=== PATIENT | female | born 1950 | race Caucasian/White ===

== ENCOUNTER 2018-08-10 17:59 | Emergency (ER) | payer BC, OTHER ==
[2018-08-10 18:28] VITALS: BP 164/98; PULSE 85; TEMP 98.5; BMI 32.9
[2018-08-10] MEDS ORDERED: oxyCODONE HCL 80 MG SUSTAINED ACTING TABLET PO ONE (18:32)
[2018-08-10] MEDS ORDERED: KETOROLAC TROMETHAMINE 30 MG/1 ML VIAL IM ONE (18:32)
[2018-08-10] MEDS ORDERED: oxyCODONE HCL 10 MG SUSTAINED ACTING TABLET ONE (18:43)
[2018-08-10] MEDS ORDERED: KETOROLAC TROMETHAMINE 30 MG/1 ML VIAL ONE (18:45)
--- NOTE | 2018-08-10 18:47 | PDOC ---
History of Present Illness - General History Source: Patient Exam Limitations: No Limitations - History of Present Illness Initial Comments: 08/10/18 18:47 The patient is a 68 year old female with a significant past medical history of multiple spinal and neurologic problems who presents to the ED with right leg pain. The patient states she has been endorsing knee pain that is aggravated with walking and movement. The patient reports she has no feeling in her legs from her knees down. The patient notes she took 2 tablets of Tylenol for pain relief. The patient states she ran out of oxycodone, called her PCP, Dr. Castro for a new superintendent communications, however, no pharmacy has the generic oxycodone available at the moment. Her PCP, has referred her to a neurologist for a follow up appointment, however she denies scheduling an appointment. Allergies: None reported Past surgical history: cervical spinal surgery Social history: None reported PCP: Nikolai Valdez <Mac Ramirez - Last Filed: 08/10/18 18:47> <Ankush Briggs - Last Filed: 08/10/18 19:07> - General Chief Complaint: Pain Stated Complaint: BACK AND HIP AND RIGHT LEG PAIN Time Seen by Provider: 08/10/18 18:16 Past History <Mac Ramirez - Last Filed: 08/10/18 18:47> - Past Medical History Anemia: No Asthma: No Cancer: No Cardiac Disorders: No CVA: No COPD: No CHF: No Dementia: No Diabetes: No GI Disorders: Yes (GERD HIATAL HERNIA) Disorders: Yes (UTI) HTN: Yes Hypercholesterolemia: No Liver Disease: No Seizures: No Thyroid Disease: No Other medical history: CHRONIC PAIN SPINAL STENOSIS - Surgical History Abdominal Surgery: Yes (OVARIAN CYST) Appendectomy: No Cardiac Surgery: No Cholecystectomy: Yes Lung Surgery: No Neurologic Surgery: No Orthopedic Surgery: Yes (CERVICAL SPINE SURGERY) - Suicide/Smoking/Psychosocial Hx Smoking Status: Yes Smoking History: Former smoker Have you smoked in the past 12 months: No Number of Cigarettes Smoked Daily: 5 If you are a former smoker, when did you quit?: 4 YEARS AGO Information on smoking cessation initiated: No 'Breaking Loose' booklet given: 12/05/15 Hx Alcohol Use: No Drug/Substance Use Hx: No Substance Use Type: None Hx Substance Use Treatment: No <Ankush Briggs - Last Filed: 08/10/18 19:07> - Past Medical History Allergies/Adverse Reactions: Allergies Allergy/AdvReac Type Severity Reaction Status Date / Time No Known Allergies Allergy Verified 08/10/18 18:01 Home Medications: Ambulatory Orders Metformin HCl [Metformin HCl ER] 500 mg PO DAILY 08/10/18 Oxycodone HCl [Oxycontin] 80 mg PO TID 08/10/18 Pregabalin [Lyrica -] 75 mg PO TID 08/10/18 Review of Systems - Review of Systems Able to Perform ROS?: Yes Comments:: 08/10/18 18:49 A complete review of 10 out of 10 review of systems is taken and is negative apart from what is previously mentioned below and in the HPI. All Other Systems: Reviewed and Negative <Mac Ramirez - Last Filed: 08/10/18 18:47> *Physical Exam - Vital Signs Last Vital Signs Temp Pulse Resp BP Pulse Ox 98.5 F 85 16 164/98 10 L 08/10/18 18:00 08/10/18 18:00 08/10/18 18:00 08/10/18 18:00 08/10/18 18:00 - Physical Exam Comments: 08/10/18 18:49 Vitals: Triage Vital signs reviewed General Appearance: no acute distress, well nourished well developed, Head: Atraumatic, normocephalic Extremities: (+) pain with range of motion to right knee, arthritic changes. No deformities, no cyanosis, clubbing, or edema. Neurovascular intact. Skin: Warm and dry, no rashes or lesions, no petechiae Neuro: AOX3; Cranial Nerves 2-12 grossly c intact, Strength intact to all extremities, Sensation intact to all extremities, gait normal <Mac Ramirez - Last Filed: 08/10/18 18:47> - Vital Signs Last Vital Signs Temp Pulse Resp BP Pulse Ox 98.5 F 85 16 164/98 10 L 08/10/18 18:00 08/10/18 18:00 08/10/18 18:00 08/10/18 18:00 08/10/18 18:00 <Ankush Briggs - Last Filed: 08/10/18 19:07> ED Treatment Course - RADIOLOGY Radiology Studies Ordered: Category Date Time Status KNEE 3 POS-RIGHT [RAD] Stat Radiology 08/10/18 18:30 Ordered <Ankush Briggs - Last Filed: 08/10/18 19:07> Medical Decision Making - Medical Decision Making 08/10/18 18:49 The patient is a 68 year old female with a significant past medical history of multiple spinal and neurologic problems who presents to the ED with right leg pain. <Mac Ramirez - Last Filed: 08/10/18 18:47> - Medical Decision Making 08/10/18 19:04 Chronic back hip and leg pain patient with multiple spinal surgeries is chronically on oxycodone pharmacy did not have her generic and was unable to fill her prescription I discussed with patient I am unable to provide refills although this would not help her current situation is pharmacy does not have her corrective prescription I confirmed that her last prescription was for 20 days ago using I stop We will treat with one pill here in the emergency department she will call her primary care provider's office to try to arrange a substitute medication while deformity remedies a situation X-ray with no acute fracture dislocation noted Findings, the need for follow-up and strict return instructions discussed patient. <Ankush Briggs - Last Filed: 08/10/18 19:07> *DC/Admit/Observation/Transfer - Attestations Scribe Attestion: 08/10/18 18:51 Documentation prepared by Mac Ramirez, acting as medical librarian for Ankush Briggs MD, MD <Mac Ramirez - Last Filed: 08/10/18 18:47> - Discharge Dispostion Decision to Admit order: No <Anuksh Briggs - Last Filed: 08/10/18 19:07> Diagnosis at time of Disposition: Chronic pain Qualifiers: Chronic pain type: chronic pain syndrome Qualified Code(s): G89.4 - Chronic pain syndrome - Discharge Dispostion Disposition: HOME Condition at time of disposition: Stable - Referrals Referrals: Polly Bolunt MD [Staff Physician] - - Patient Instructions Printed Discharge Instructions: DI for Knee Pain Additional Instructions: Follow-up with your doctor or with the pain management doctor tomorrow to discuss alternatives to the medication the pharmacy was unable to provide Call your local pharmacy to see if they can find alternative pharmacies for you Follow-up with your doctor this week.
== END 2018-08-10 19:20 | disposition home or self-care (01) ==
LOC: SUPCPDRO 17:59 → FER 17:59
PROC: 3E0233Z Introduction of Anti-inflammatory into Muscle, Percutaneous Approach (ICD-10-PCS; principal; 2018-08-10)
DX: G89.4 Chronic pain syndrome (principal)
CPT/HCPCS: 73562-TC-RT-FY; 99282-25

== ENCOUNTER 2020-01-03 06:14 | Inpatient (IN) | payer BC, OTHER ==
[2019-12-28 11:09] VITALS: BMI 32.9
[2020-01-03] MEDS ORDERED: TRANEXAMIC ACID 1000 MG/10 ML VIAL IVPUSH ONE (06:54)
[2020-01-03] MEDS ORDERED: CELECOXIB 200 MG CAPSULE PO ONE (06:54)
[2020-01-03] MEDS ORDERED: CEFAZOLIN 2 GM/D5W 2 GM/50 ML ML IVPB ONE (06:54)
[2020-01-03] MEDS ORDERED: CELECOXIB 200 MG CAPSULE ONE (07:03)
[2020-01-03] MEDS ORDERED: MIDAZOLAM HCL 2 MG/2 ML SINGLE DOSE VIAL ONE ×3 (07:07→08:53)
[2020-01-03] MEDS ORDERED: EPINEPHrine/PF 1 MG/1 ML (1:1,000) AMPULE ONE (07:07)
[2020-01-03] MEDS ORDERED: BUPIVACAINE HCL/PF 0.5% (5 MG/ML) 30 ML VIAL IJ ONE (07:07)
[2020-01-03] MEDS ORDERED: PROPOFOL 20 ML ONE (07:15)
[2020-01-03] MEDS ORDERED: TRANEXAMIC ACID 1000 MG/10 ML VIAL ONE (07:15)
[2020-01-03] MEDS ORDERED: ceFAZolin SODIUM 1 GM VIAL ONE ×2 (07:15)
[2020-01-03] MEDS ORDERED: VANCOMYCIN 1,000 MG VIAL (RESTRICTED TO ID ONLY) ONE (07:15)
[2020-01-03] MEDS ORDERED: DEXAMETHASONE SOD PHOSPHATE 4 MG/1 ML VIAL ONE (07:16)
[2020-01-03] MEDS ORDERED: ONDANSETRON 4 MG/2 ML VIAL ONE (07:16)
[2020-01-03] MEDS ORDERED: ALBUTEROL SO4 HFA INHALER IH PRN (07:54)
--- NOTE | 2020-01-03 07:54 | HP ---
Satellite H - Chief Complaint Chief Complaint: right hip pain - Past Medical History Allergies/Adverse Reactions: Allergies Allergy/AdvReac Type Severity Reaction Status Date / Time No Known Allergies Allergy Verified 12/28/19 10:56 - Current Medications Current Medications: Home Medications Medication Instructions Recorded Oxycodone HCl [Oxycontin] 80 mg PO TID PRN 08/10/18 Pregabalin [Lyrica -] 75 mg PO TID 08/10/18 metFORMIN HCL [Metformin HCl ER] 500 mg PO DAILY 08/10/18 Metoprolol Succinate [Toprol Xl] 100 mg PO HS 12/28/19 Albuterol Sulfate Inhaler - 2 inh PO Q4H PRN 01/03/20 [Ventolin Hfa Inhaler -] Satellite Physical Exam - Physical Examination Vital Signs: Vital Signs Period Temp Pulse Resp BP Sys/Calderon Pulse Ox Last 24 Hr 98.4 F 62 18 134/65 95 General Appearance: Well Nourished, Well Developed, Alert & Oriented x3 ENT: Clear Lung: Normal air movement Extremities: Other (right hip- + ttp, decr rom, nvi, xrays show grade 4 hip djd) Neurological: Intact, Alert, Oriented Satellite Impression/Plan - Impression/Plan Impression: right hip djd Operative Procedure: right cassidy thr Date to be Performed: 01/03/20
[2020-01-03] MEDS ORDERED: ONDANSETRON 4 MG/2 ML VIAL IVPUSH PRN (07:55)
[2020-01-03] MEDS ORDERED: MAG HYDROX/AL HYDROX/SIMETH 30 ML UNIT-DOSE CUP PO PRN (07:55)
[2020-01-03] MEDS ORDERED: MAGNESIUM HYDROX 2400MG/30ML ORAL SUSPENSION 30 ML CUP PO PRN (07:55)
[2020-01-03] MEDS ORDERED: LACTATED RINGERS SOLUTION 1,000 ML IV SCH (08:00)
[2020-01-03] MEDS ORDERED: BUPIVACAINE HCL/PF 0.5% (5MG/ML) 10 ML VIAL ONE (08:01)
[2020-01-03] MEDS ORDERED: SUCCINYLCHOLINE CHLORIDE 200 MG/10 ML SYRINGE ONE (08:38)
[2020-01-03] MEDS ORDERED: VANCOMYCIN 1,000 MG VIAL (RESTRICTED TO ID ONLY) IVPB ONE (09:17)
[2020-01-03] MEDS ORDERED: traMADol HCL 50 MG TABLET PO PRN (09:25)
[2020-01-03] MEDS ORDERED: oxyCODONE HCL 5 MG TABLET PO PRN (09:25)
--- NOTE | 2020-01-03 09:29 | OP ---
Operative Note - Note: Operative Date: 01/03/20 (noel) Pre-Operative Diagnosis: right hip djd Operation: right cassidy thr Post-Operative Diagnosis: Same as Pre-op Surgeon: Simba Magallon Recovery Operator Helper: Nikolai Reyes) Anesthesiologist/CINDER CRUSHER OPERATOR: Roc Mendoza Anesthesia: Spinal, Local Specimens Removed: femoral head Estimated Blood Loss (mls): 100
[2020-01-03] MEDS ORDERED: ACETAMINOPHEN 325 MG TABLET (FP) PO SCH (09:30)
[2020-01-03] MEDS ORDERED: ACETAMINOPHEN 325 MG TABLET (FP) ONE (11:25)
[2020-01-03] MEDS: PREGABALIN 25 MG CAPSULE PO SCH ×2 (13:23→22:13)
[2020-01-03] MEDS: MULTIVITAMINS (DAILY MVI) TABLET (FP) PO SCH (13:30)
[2020-01-03] MEDS: PANTOPRAZOLE 40 MG TABLET PO SCH (13:30)
[2020-01-03] MEDS: CEFAZOLIN 2 GM/D5W 2 GM/50 ML ML IVPB SCH ×2 (15:51→23:52)
[2020-01-03] MEDS: ACETAMINOPHEN 325 MG TABLET (FP) PO SCH ×3 (15:52→23:52)
[2020-01-03] MEDS: oxyCODONE HCL 5 MG TABLET PO PRN ×2 (17:38→22:13)
--- NOTE | 2020-01-03 20:11 | SPEC ---
DATE OF OPERATION: 01/03/2020 PREOPERATIVE DIAGNOSIS: Degenerative joint disease right hip. POSTOPERATIVE DIAGNOSIS: Degenerative joint disease right hip. PROCEDURE PERFORMED: Right total hip replacement with robotic-assisted navigation (MAKOplasty). SURGICAL ATTENDING: Simba Magallon M.D. PROGRAM ADMIN: Nati Rebolledo SECOND POWER BUILDER DEVELOPER: Manish Ribeiro M.D. ANESTHESIA: Regional and spinal. CLOSURE: A Brenda with a 52 Press-Fit Trident 2 acetabular shell, a number 7 Accolade 2 Press-Fit femoral stem, and a 36 plus 2.5 ceramic femoral head. Number 1 Vicryl for fascia, 0 and 2-0 subcutaneous, 3-0 V-Loc for skin, 4-0 undyed Vicryl for pin sites. . COMPLICATIONS: None. CONDITION: To the recovery room in stable condition. DESCRIPTION OF PROCEDURE: The patient was taken to the operating room on January 03, 2020. General and regional anesthesia was administered by the anesthesiologist. IV Kefzol and TXA were administered prophylactically prior to the case. The patient was placed in the lateral decubitus position will all prominences well-padded. The right hip area was prepped and draped in the usual sterile fashion. Using 3 small stab incisions over the iliac crest, 3 threaded pins were drilled in power fashion through the 2 tables of the crest. These pins were fastened and the navigation array for the Chidi navigation system. Next, a 12 to 15-cm curved longitudinal incision over the posterolateral aspect of the greater trochanter was incised. Hemostasis was achieved with Bovie cautery. Sharp dissection was carried down to level of the fascia. The fascia was opened the entire length of the incision, spreading the fibers of the gluteus feliciano in the direction of origin. A Charnley retractor was placed in this layer. Care was taken not to impale the sciatic nerve. The short external rotators were detached off the insertion of the greater trochanter and peeled off the capsule. A posterior capsulotomy was then performed. A check point was malleted into the greater trochanter and a point on the inferior pole of the patella was obtained as well. These 2 points were used to assess the preoperative offset and limb lengths of the hip. The hip was then dislocated. The femoral neck was then osteotomized down to the appropriate level as directed by the navigation device. Anterior and posterior retractors were placed, exposing the acetabulum. A circumferential labral excision was performed. A check point was malleted into the acetabulum as well. Multiple sites inside the acetabulum and around the rim were utilized to register the acetabulum with the navigation device. An excellent registration of less than 0.5 mm was obtained. The hip was then reamed with the appropriate reamer down to the appropriate depth, with the appropriate orientation and version as assessed on our preoperative plan for this patient. The reamer was removed and the acetabulum was inspected to have good bleeding surfaces throughout. The real acetabular cup was then malleted down into place, with the holes in the appropriate position, until an excellent fixation was obtained. No screws were necessary. The navigation device ensured appropriate orientation and version, with the depth as predetermined. The appropriate liner was then clipped into place. Attention was directed to the femur. The proximal femur was prepared by use a box chisel, a canal finder and serial broaches until the broach achieved excellent rigidity in the proximal femur with the appropriate version being applied. A calcar planer was used to smooth off the calcar flush with the trial components. A trial reduction with the appropriate head was done, and the hip was reduced. The hip was taken through a range of motion from full extension with external rotation to marked flexion, and was stable at 90 degrees of flexion. It was stable to marked abduction and internal rotation, with a positive hang test and negative telescoping. Limb lengths were ascertained visually as well as with the navigation device to be within the targeted range for this patient. The trial component was removed. The real component was then malleted into place. The head was cold welded to the trunnion, and the hip was reduced. Range of motion, stability and limb lengths were as described in the trial component. Then the hip was pulse antibiotic irrigated. Vancomycin powder was placed in the hip joint. The capsule was closed. The fascia was then closed as well using number 1 Vicryl interrupted suture, 0 and 2-0 subcutaneous, and 3-0 V-Loc for the skin. 4-0 undyed Vicryl was used to close the pin sites after the pins were removed. All check points were also removed. Sterile Aquacel dressing was applied. The patient was awakened from anesthesia and transferred into the supine position. Bilateral SCDs and an abduction pillow were placed. X-rays revealed excellent position of the components. The patient was transferred to the recovery room in stable condition, with no complications. Estimated blood loss was less than 100 mL. MANISH RIBEIRO M.D. [id number]
[2020-01-03] MEDS: SENNOSIDES/DOCUSATE COMBO (SENNA PLUS) TABLET (UD) PO SCH (22:13)
[2020-01-04] MEDS: ACETAMINOPHEN 325 MG TABLET (FP) PO SCH ×3 (05:26→19:20)
[2020-01-04] MEDS: oxyCODONE HCL 5 MG TABLET PO PRN ×6 (05:27→22:39)
[2020-01-04] MEDS: PREGABALIN 25 MG CAPSULE PO SCH (05:27)
--- NOTE | 2020-01-04 08:08 | PN ---
Progress Note (short form) - Note Progress Note: Ortho Pt seen and examined s/p right cassidy thr pod #1 Selected Entries 01/04/20 06:00 Temperature 98.7 F Pulse Rate 70 Respiratory 18 Rate Blood Pressure 101/53 L dressing c/d/i ,calf soft, nt ,nvi a/p PT hip precautions dvt ppx pain control d/c home tomorrow if stable
[2020-01-04 08:42] LABS: HEMATOCRIT 33.3 % (32.4-45.2); HEMOGLOBIN 11.1 GM/dl (10.7-15.3); MCH 34.5 pg (25.7-33.7); MCHC 33.3 g/dl (32.0-36.0); MEAN CELL VOLUME 103.3 fl (80-96); MEAN PLT VOLUME 7.6 fl (7.5-11.1); PLATELET COUNT 138 K/MM3 (134-434); RBC 3.22 M/mm3 (3.60-5.2); RDW 16.3 % (11.6-15.6); WHITE BLOOD COUNT 8.3 K/mm3 (4.0-10.8)
[2020-01-04] MEDS: MULTIVITAMINS (DAILY MVI) TABLET (FP) PO SCH (10:38)
[2020-01-04] MEDS: SENNOSIDES/DOCUSATE COMBO (SENNA PLUS) TABLET (UD) PO SCH ×3 (10:38→21:54)
[2020-01-04] MEDS: PANTOPRAZOLE 40 MG TABLET PO SCH (10:38)
[2020-01-04] MEDS: ASPIRIN 325 MG TABLET PO SCH (10:38)
--- NOTE | 2020-01-04 14:53 | PN ---
Progress Note (short form) - Note Progress Note: ANESTHESIA POSTOP 69 YO FEMALE POD#1 S/P KRISTOFER Sitting in chair. Tolerating PO. Requires pain medication to stay comfortable VSS, Afebrile Continue current care, encouraged active participation in PT and use of IS. No anesthetic complications.
[2020-01-05] MEDS: ACETAMINOPHEN 325 MG TABLET (FP) PO SCH ×3 (01:49→11:01)
[2020-01-05] MEDS: oxyCODONE HCL 5 MG TABLET PO PRN ×2 (01:49→06:52)
[2020-01-05 06:30] VITALS: BP 143/61; PULSE 102; TEMP 99
--- NOTE | 2020-01-05 07:59 | PN ---
Progress Note (short form) - Note Progress Note: Ortho Pt seen and examined s/p right cassidy thr pod #2 Selected Entries 01/05/20 06:00 Temperature 99.0 F Pulse Rate 102 H Respiratory 18 Rate Blood Pressure 143/61 Laboratory Tests 01/04/20 06:54 WBC 8.3 Hgb 11.1 Hct 33.3 D Plt Count 138 dressing c/d/i ,calf soft, nt ,nvi a/p PT hip precautions dvt ppx pain control d/c home today f/u in 1 week
--- NOTE | 2020-01-05 08:00 | DS ---
Physical Examination Vital Signs: Vital Signs Temperature 99.0 F 01/05/20 06:00 Pulse Rate 102 H 01/05/20 06:00 Respiratory Rate 18 01/05/20 06:00 Blood Pressure 143/61 01/05/20 06:00 O2 Sat by Pulse Oximetry (%) 91 L 01/05/20 06:00 Labs: CBC, BMP 01/04/20 06:54 Discharge Summary Problems reviewed: Yes Reason For Visit: OSTEOARTHRITIS Procedures: Principal: right thr Hospital Course: admitted for elective right cassidy thr, post-op per protocol, stable for d/c Condition: Good - Instructions Diet, Activity, Other Instructions: Post-op Instructions-Total Hip Replacement Call the office for a follow-up appointment in 1 week - [phone] Aspirin 325mg daily for 6 weeks. Pain medication was sent into your pharmacy. Apply Graduated Compression Stockings (TEDs) to both lower extremities- remove daily for hygiene ONLY Apply Sequential Compression Device (SCDs) to both Lower extremities remove for PT and hygiene ONLY Apply cold packs to affected area for 15 minutes every 2 hours. Physical Therapist will come to your home for the first 5 days. You will be set up with outpatient PT at your first post-operative visit. Patient may ambulate as tolerated-encourage self care (at least every 2-3 hours while awake) with walker or cane Maintain Aquacel (waterproof) dressing to operative wound (will be removed by surgeon at first office visit) Shower with Aquacel dressing in place-if Aquacel integrity compromised, remove and apply dry sterile dressing and notify Orthopedist. DO NOT SHOWER unless Orthopedists approves without Aquacel dressing CONTACT THE OFFICE FOR ANY CHANGE IN YOUR CONDITION (for example-fever greater than 102 degrees, excessive bleeding from operative site, purulent drainage, severe swelling or pain) GO TO THE EMERGENCY ROOM IF THERE IS A MEDICAL EMERGENCY Hip Precautions: * Keep a rolled towel under affected heel while in bed or chair (to keep knee in extension) * Dependent upon approach: * Posterior - do not cross legs; do not sit on low chairs or toil ets. * If you have any questions, please do not hesitate to call the office - [phone]. Referrals: Aneesh Ribeiro MD [Staff Physician] - Disposition: VNS/HOME HEALTH CARE - Home Medications Comprehensive Discharge Medication List: Ambulatory Orders Oxycodone HCl [Oxycontin] 80 mg PO TID PRN 08/10/18 Pregabalin [Lyrica -] 75 mg PO TID 08/10/18 metFORMIN HCL [Metformin HCl ER] 500 mg PO DAILY 08/10/18 Metoprolol Succinate [Toprol Xl] 100 mg PO HS 12/28/19 Albuterol Sulfate Inhaler - [Ventolin HFA Inhaler -] 2 inh PO Q4H PRN 01/03/20 Aspirin [ASA -] 325 mg PO DAILY@0800 tablet 01/04/20 Oxycodone HCl/Acetaminophen [Percocet 5-325 mg Tablet -] 1 - 2 tab PO Q6H #50 tab MDD 8 01/04/20
[2020-01-05] MEDS: ASPIRIN 325 MG TABLET PO SCH (08:15)
[2020-01-05 08:27] LABS: HEMATOCRIT 34.2 % (32.4-45.2); HEMOGLOBIN 11.3 GM/dl (10.7-15.3); MCH 34.1 pg (25.7-33.7); MCHC 32.9 g/dl (32.0-36.0); MEAN CELL VOLUME 103.6 fl (80-96); MEAN PLT VOLUME 7.9 fl (7.5-11.1); PLATELET COUNT 138 K/MM3 (134-434); RBC 3.31 M/mm3 (3.60-5.2); RDW 16.5 % (11.6-15.6); WHITE BLOOD COUNT 8.1 K/mm3 (4.0-10.8)
[2020-01-05] MEDS: PANTOPRAZOLE 40 MG TABLET PO SCH (09:28)
[2020-01-05] MEDS: MULTIVITAMINS (DAILY MVI) TABLET (FP) PO SCH (09:28)
[2020-01-05] MEDS: SENNOSIDES/DOCUSATE COMBO (SENNA PLUS) TABLET (UD) PO SCH (09:28)
--- NOTE | 2020-01-05 15:17 | PATH ---
Surgical Pathology Report Patient Name: AKIN GALVEZ Med. Rec. #: [id number] /Age/Gender: 1950 (Age: 69) / F Account: [id number] Location: [facility] MED-SURG Taken: 01/03/2020 Received: 01/03/2020 Reported: 01/05/2020 Physicians: Simba Magallon M.D. Specimen(s) Received RIGHT FEMORAL HEAD Clinical History Osteoarthritis, right hip Final Diagnosis FEMORAL HEAD, RIGHT, TOTAL HIP REPLACEMENT: DEGENERATIVE JOINT DISEASE. Electronically Signed Daphney Wing M.D. Gross Description Received in formalin, labeled "right femoral head," is a 5.5 x 4.7 x 4.2 cm. femoral head. The margin of resection is smooth. The articular surface appears granular and shows areas of eburnation. The underlying trabecular bone is yellow and hard. A sales representative groceries section is submitted in one cassette, following decalcification. AE/01/04/2020 ebram/01/04/2020
== END 2020-01-05 12:20 | disposition home health service (06) | DRG 470 ==
LOC: FM/S 06:14
PROVIDERS: ADMIT Orthopaedic Surgery; ATTEND Orthopaedic Surgery
PROC: 8E0W0CZ Robotic Assisted Procedure of Trunk Region, Open Approach (ICD-10-PCS; 2020-01-03)
PROC: 0SRB0JZ Replacement of Left Hip Joint with Synthetic Substitute, Open Approach (ICD-10-PCS; principal; 2020-01-03 08:32)
DX: M16.11 Unilateral primary osteoarthritis, right hip (principal); J44.9 Chronic obstructive pulmonary disease, unspecified; K21.9 Gastro-esophageal reflux disease without esophagitis; E11.9 Type 2 diabetes mellitus without complications; E66.9 Obesity, unspecified; Z68.32 Body mass index [BMI] 32.0-32.9, adult
CPT/HCPCS: 36415; 73502-TC-RT-FY; 82962; 85027; 88305-TC; 88311-TC; 94760; 97116-GP; 97162-GP

== ENCOUNTER 2020-02-13 14:08 | Emergency (ER) | payer BC, OTHER ==
[2020-02-13 14:18] VITALS: BP 167/96; PULSE 95; TEMP 98.5; BMI 32.9
[2020-02-13] MEDS ORDERED: oxyCODONE HCL 80 MG SUSTAINED ACTING TABLET PO ONE (14:25)
--- NOTE | 2020-02-13 14:25 | PDOC ---
History of Present Illness - General Chief Complaint: Pain, Acute Stated Complaint: pain Time Seen by Provider: 02/13/20 14:14 History Source: Patient Exam Limitations: No Limitations - History of Present Illness Initial Comments: 02/13/20 14:20 69 yo F h/o chronic pain, recent hip surgery , here because ran out of pain medication. pt has been receiving prescriptions for oxycontin 80 ER , last prescription given in 01/24, but unable to see her dr Castro today. no f/c does have bilat leg swelling which is chronic. no f/c no sp no cob. no h/o pe or dvt. no mod factors. Past History - Medical History Allergies/Adverse Reactions: Allergies Allergy/AdvReac Type Severity Reaction Status Date / Time No Known Allergies Allergy Verified 02/13/20 14:11 Home Medications: Ambulatory Orders Oxycodone HCl [Oxycontin] 80 mg PO TID PRN 08/10/18 Pregabalin [Lyrica -] 75 mg PO TID 08/10/18 metFORMIN HCL [Metformin HCl ER] 500 mg PO DAILY 08/10/18 Metoprolol Succinate [Toprol Xl] 100 mg PO HS 12/28/19 Albuterol Sulfate Inhaler - [Ventolin HFA Inhaler -] 2 inh PO Q4H PRN 01/03/20 Aspirin [ASA -] 325 mg PO DAILY@0800 tablet 01/04/20 Anemia: No Asthma: No Cancer: No Cardiac Disorders: No CVA: No COPD: Yes CHF: No Dementia: No Diabetes: Yes GI Disorders: Yes (GERD;HIATAL HERNIA) Disorders: Yes (FREQUENT UTI'S) HTN: Yes Hypercholesterolemia: No Liver Disease: No Seizures: No Thyroid Disease: No - Surgical History Abdominal Surgery: Yes Appendectomy: No Cardiac Surgery: No Cholecystectomy: Yes (1994) Lung Surgery: No Neurologic Surgery: No Orthopedic Surgery: Yes (CERVICAL SPINE SURGERY-CERVICAL FUSION & STABILIZING BAR;LUMBAR CAGES) - Immunization History Immunization Up to Date: Yes - Psycho-Social/Smoking History Smoking Status: Yes Smoking History: Current some day smoker Have you smoked in the past 12 months: Yes Number of Cigarettes Smoked Daily: 1 If you are a former smoker, when did you quit?: 4 YEARS AGO Information on smoking cessation initiated: No 'Breaking Loose' booklet given: 12/05/15 - Substance Abuse Hx (Audit-C & DAST Scrn) How often the patient has a drink containing alcohol: Never Score: In Men: 4 or > Positive; In Women: 3 or > Positive: 0 Screen Result (Pos requires Nsg. Audit-10AR): Negative In the last yr the pt used illegal drug/Rx for NonMed reason: No Score: Yes response is considered Positive: 0 Screen Result (Positive result requires Nsg. DAST-10): Negative Review of Systems - Review of Systems Constitutional: No: Chills, Diaphoresis HEENTM: No: Eye Pain, Blurred Vision, Tearing Respiratory: No: Cough, Orthopnea, Shortness of Breath Cardiac (ROS): No: Chest Pain, Edema : No: Burning, Dysuria, Discharge Musculoskeletal: Yes: Joint Pain. No: Back Pain, Gout Integumentary: No: Bruising, Change in Color All Other Systems: Reviewed and Negative *Physical Exam - Vital Signs Last Vital Signs Temp Pulse Resp BP Pulse Ox 98.5 F 95 H 18 167/96 100 02/13/20 14:10 02/13/20 14:10 02/13/20 14:10 02/13/20 14:10 02/13/20 14:10 - Physical Exam 02/13/20 14:54 awake alert lungs clear bilat heart rrr no mrg abd soft nt nd ext wwp. bilat pitting edema. right greater than left 3+. nuero alert oriented x 3. Medical Decision Making - Medical Decision Making 02/13/20 14:23 69 yo F h/o chronic pain,, hip pain s/p surgery. bilat leg swelling. will r/o dvt. bilat dopplers. given dose of Oxy ER in ED will page dr castro to discuss pt prescription for breakthrough pain medication. recommend she see a pain specialist as she has high tolerance and chronic pain. confirmed via istop Reference #: [id number] . given previously montly prescriptions for oxy ER 80 #90, only recently given 50pills last prescription. no prescription filled since 01/24. 02/13/20 14:[address] Macias, who is covering for dr Castro, will be able to see pt or sort out prescription issue by wednesday 02/14. ok with her getting few tablets prescription to last until then. given dose of oxy in ED . 02/13/20 15:51 pt doppler negative. dc home. fu dr macias / or dr castro Discharge - Discharge Information Problems reviewed: Yes Clinical Impression/Diagnosis: Hip pain Condition: Improved Disposition: HOME - Admission No - Additional Discharge Information Prescription Drug Monitoring Program (I-STOP) results: I-STOP reviewed and no issues identified - Follow up/Referral Referrals: Nikolai Castro MD [Staff Physician] - - Patient Discharge Instructions Patient Printed Discharge Instructions: DI for Prescription Opioid Use Additional Instructions: your doppler today was negative for a blood clot. you should follow up with dr Castro, call to confirm appointment tomorrow for wednesday 02/14. you have been given a prescription for your home dose of oxycontin 80 mg total of 10 tablets. - Post Discharge Activity
== END 2020-02-13 16:03 | disposition home or self-care (01) ==
LOC: FER 14:08
DX: R22.42 Localized swelling, mass and lump, left lower limb (principal); R22.41 Localized swelling, mass and lump, right lower limb
CPT/HCPCS: 93970-TC; 99284-25

== ENCOUNTER 2020-03-30 04:26 | Day surgery (SDC) | payer BC, OTHER ==
[2020-03-29 18:09] VITALS: BMI 32.3
[2020-03-30] MEDS ORDERED: DEXAMETHASONE SOD PHOSPHATE/PF 10 MG/ML SDV ONE (11:04)
[2020-03-30] MEDS ORDERED: IOHEXOL 180 MG/1 ML ML IJ ONE (11:31)
[2020-03-30] MEDS ORDERED: DEXAMETHASONE SOD PHOSPHATE 10 MG/1 ML VIAL IVPUSH ONE (11:31)
[2020-03-30] MEDS ORDERED: LIDOCAINE 1% P/F 10 MG/ML VIAL INF ONE (11:31)
[2020-03-30 12:46] VITALS: BP 157/79; PULSE 101; TEMP 97.1
== END 2020-03-30 12:50 | disposition home or self-care (01) ==
LOC: JASU-SURG 04:26
PROVIDERS: ATTEND Pain Medicine Pain Medicine
PROC: 3E0R33Z Introduction of Anti-inflammatory into Spinal Canal, Percutaneous Approach (ICD-10-PCS; 2020-03-30)
PROC: 3E0R3BZ Introduction of Anesthetic Agent into Spinal Canal, Percutaneous Approach (ICD-10-PCS; principal; 2020-03-30 10:30)
DX: M54.16 Radiculopathy, lumbar region (principal); M54.5 Low back pain
CPT/HCPCS: J1100

== ENCOUNTER 2020-05-10 15:15 | Emergency (ER) | payer BC, OTHER ==
[2020-05-10 15:30] VITALS: BP 155/85; PULSE 89; TEMP 99; BMI 32.9
[2020-05-10] MEDS ORDERED: ACETAMINOPHEN 1000 MG/100 ML VIAL (NON FORMULARY) IVPB ONE (15:50)
[2020-05-10] MEDS ORDERED: FAMOTIDINE 20 MG/50 ML IVPB 20 MG/50 ML MG IVPB ONE ×2 (15:50→16:14)
[2020-05-10] MEDS ORDERED: METOCLOPRAMIDE HCL INJECTION 10 MG/2 ML VIAL IVPB ONE (15:50)
[2020-05-10] MEDS ORDERED: SODIUM CHLORIDE 1,000 ML IV STA (15:50)
[2020-05-10] MEDS ORDERED: MAG HYDROX/AL HYDROX/SIMETH 30 ML UNIT-DOSE CUP PO ONE (15:50)
[2020-05-10] MEDS ORDERED: MAG HYDROX/AL HYDROX/SIMETH 30 ML UNIT-DOSE CUP ONE (16:14)
[2020-05-10] MEDS ORDERED: ACETAMINOPHEN INJECTION 100 ML IVPB ONE (16:14)
[2020-05-10] MEDS ORDERED: METOCLOPRAMIDE HCL INJECTION 10 MG/2 ML VIAL ONE (16:15)
[2020-05-10 16:16] LABS: BASO % 2.3 % (0-2.0); EOS % 1.2 % (0-4.5); HEMATOCRIT 39.4 % (32.4-45.2); HEMOGLOBIN 12.7 GM/dl (10.7-15.3); LYMPH % 16.1 % (8-40); MCHC 32.1 g/dl (32.0-36.0); MEAN CELL VOLUME 90.2 fl (80-96); MEAN PLT VOLUME 8.3 fl (7.5-11.1); MONO % 3.7 % (3.8-10.2); NEUT % 76.7 % (42.8-82.8); PLATELET COUNT 254 K/MM3 (134-434); RBC 4.37 M/mm3 (3.60-5.2); RDW 15.1 % (11.6-15.6); WHITE BLOOD COUNT 7.5 K/mm3 (4.0-10.8)
[2020-05-10 16:18] LABS: INR 1.08 (0.82-1.09)
[2020-05-10 16:31] LABS: ALBUMIN 3.7 g/dl (3.4-5.0); BILIRUBIN,TOTAL 0.4 mg/dl (0.2-1); CALCIUM 8.8 mg/dl (8.5-10); CREATININE 0.6 mg/dl (0.55-1.3); MAGNESIUM 1.8 mg/dL (1.8-2.4); POTASSIUM 4.2 mmol/L (3.5-5.1); TOT PROT 6.7 g/dl (6.4-8.2)
== END 2020-05-10 19:00 | disposition home or self-care (01) ==
LOC: FER 15:15
PROC: 3E0333Z Introduction of Anti-inflammatory into Peripheral Vein, Percutaneous Approach (ICD-10-PCS; principal; 2020-05-10)
PROC: 3E033GC Introduction of Other Therapeutic Substance into Peripheral Vein, Percutaneous Approach (ICD-10-PCS; 2020-05-10)
PROC: 3E033GC Introduction of Other Therapeutic Substance into Peripheral Vein, Percutaneous Approach (ICD-10-PCS; 2020-05-10)
PROC: 3E033GC Introduction of Other Therapeutic Substance into Peripheral Vein, Percutaneous Approach (ICD-10-PCS; 2020-05-10)
PROC: 3E0337Z Introduction of Electrolytic and Water Balance Substance into Peripheral Vein, Percutaneous Approach (ICD-10-PCS; 2020-05-10)
DX: R10.13 Epigastric pain (principal); R51.9 Headache, unspecified; K29.00 Acute gastritis without bleeding
CPT/HCPCS: 36415; 70450-TC; 71045-TC-FY; 74177-TC; 80053; 83605; 83690; 83735; 84484; 85025; 85610; 93005; 99285-25; C9803; J0131; Q9967; U0003

== ENCOUNTER 2020-05-24 08:13 | Day surgery (SDC) | payer BC, OTHER ==
[2020-05-22 11:26] VITALS: BMI 32.9
[2020-05-24] MEDS ORDERED: LIDOCAINE HCL 2% (20ML MULTI-DOSE VIAL) ONE (09:02)
[2020-05-24] MEDS ORDERED: MIDAZOLAM HCL 2 MG/2 ML SINGLE DOSE VIAL ONE (09:03)
[2020-05-24] MEDS ORDERED: ceFAZolin SODIUM 1 GM VIAL IVPB ONE (09:24)
[2020-05-24] MEDS ORDERED: LIDOCAINE HCL 2% (50ML VIAL) SQ ONE (09:34)
[2020-05-24] MEDS ORDERED: BUPIVACAINE HCL/PF 0.5% (5MG/ML) 10 ML VIAL IJ ONE (09:34)
[2020-05-24 11:13] VITALS: BP 128/88; PULSE 78; TEMP 97.6
== END 2020-05-24 11:20 | disposition home or self-care (01) ==
LOC: FASU 08:13
PROVIDERS: ATTEND Orthopaedic Surgery
PROC: 0LB70ZZ Excision of Right Hand Tendon, Open Approach (ICD-10-PCS; 2020-05-24)
PROC: 0LB70ZZ Excision of Right Hand Tendon, Open Approach (ICD-10-PCS; 2020-05-24)
PROC: 0LB70ZZ Excision of Right Hand Tendon, Open Approach (ICD-10-PCS; 2020-05-24)
PROC: 0LB70ZZ Excision of Right Hand Tendon, Open Approach (ICD-10-PCS; 2020-05-24)
PROC: 0LB70ZZ Excision of Right Hand Tendon, Open Approach (ICD-10-PCS; 2020-05-24)
PROC: 0LB70ZZ Excision of Right Hand Tendon, Open Approach (ICD-10-PCS; 2020-05-24)
PROC: 0LB70ZZ Excision of Right Hand Tendon, Open Approach (ICD-10-PCS; 2020-05-24)
PROC: 0LB70ZZ Excision of Right Hand Tendon, Open Approach (ICD-10-PCS; 2020-05-24)
PROC: 0LB70ZZ Excision of Right Hand Tendon, Open Approach (ICD-10-PCS; 2020-05-24)
PROC: 01N50ZZ Release Median Nerve, Open Approach (ICD-10-PCS; principal; 2020-05-24 09:00)
DX: G56.01 Carpal tunnel syndrome, right upper limb (principal); M65.841 Other synovitis and tenosynovitis, right hand
CPT/HCPCS: 88304-TC

== ENCOUNTER 2020-08-12 09:35 | Emergency (ER) | payer OTHER, BC ==
[2020-08-12] MEDS ORDERED: ACETAMINOPHEN 325 MG TABLET (FP) PO ONE (09:50)
[2020-08-12] MEDS ORDERED: PHENAZOPYRIDINE HCL 100 MG TABLET (FP) PO ONE (09:50)
[2020-08-12] MEDS ORDERED: SODIUM CHLORIDE 1,000 ML IV STA (09:50)
[2020-08-12 09:51] VITALS: BMI 33.8
[2020-08-12] MEDS ORDERED: CEFTRIAXONE 1 GM in DEXTROSE 5%-WATER - 100 ML IVPB ONE (10:04)
[2020-08-12] MEDS ORDERED: ACETAMINOPHEN 500 MG TABLET (FP) ONE (10:24)
[2020-08-12] MEDS ORDERED: PHENAZOPYRIDINE HCL 100 MG TABLET (FP) ONE (10:24)
[2020-08-12] MEDS ORDERED: cefTRIAXone SODIUM 1 GM VIAL ONE (10:24)
[2020-08-12 10:54] LABS: EPITHELIAL CELLS FEW /hpf
[2020-08-12 10:55] LABS: URINE AMORPHOUS SEDIMENT 2+
[2020-08-12 11:03] LABS: ALBUMIN 4.3 g/dl (3.4-5.0); BILIRUBIN,TOTAL 0.9 mg/dl (0.2-1); CALCIUM 8.8 mg/dl (8.5-10); CREATININE 0.8 mg/dl (0.55-1.3); EOS % 0.9 % (0-4.5); HEMATOCRIT 42.1 % (32.4-45.2); HEMOGLOBIN 13.9 GM/dl (10.7-15.3); LYMPH % 10.7 % (8-40); MCH 31.5 pg (25.7-33.7); MCHC 33.1 g/dl (32.0-36.0); MEAN PLT VOLUME 7.9 fl (7.5-11.1); MONO % 3.9 % (3.8-10.2); NEUT % 83.5 % (42.8-82.8); PLATELET COUNT 199 K/MM3 (134-434); RBC 4.43 M/mm3 (3.60-5.2); RDW 16.4 % (11.6-15.6); TOT PROT 7.3 g/dl (6.4-8.2); WHITE BLOOD COUNT 5.9 K/mm3 (4.0-10.8)
[2020-08-12 11:47] VITALS: BP 110/52; PULSE 65; TEMP 98
== END 2020-08-12 12:25 | disposition home or self-care (01) ==
LOC: FER 09:35 → SUPCPDRO 09:35 → FER 12:25
PROC: 3E03329 Introduction of Other Anti-infective into Peripheral Vein, Percutaneous Approach (ICD-10-PCS; principal; 2020-08-12)
PROC: 3E0337Z Introduction of Electrolytic and Water Balance Substance into Peripheral Vein, Percutaneous Approach (ICD-10-PCS; 2020-08-12)
DX: N30.00 Acute cystitis without hematuria (principal); Z16.20 Resistance to unspecified antibiotic
CPT/HCPCS: 36415; 80053; 81003; 81015; 85025; 87077; 87086; 99285-25

== ENCOUNTER 2020-08-12 14:54 | Emergency (ER) | payer BC, OTHER ==
[2020-08-12 15:40] VITALS: BP 162/84; PULSE 65; TEMP 98; BMI 33.8
== END 2020-08-12 15:44 | disposition home or self-care (01) ==
LOC: MERGE 14:54 → FER 14:54
DX: N39.0 Urinary tract infection, site not specified (principal); R60.0 Localized edema; R30.0 Dysuria
CPT/HCPCS: 99282-25

== ENCOUNTER 2020-08-27 08:36 | Day surgery (SDC) | payer BC, OTHER ==
[2020-08-10 13:22] VITALS: BMI 32.9
[2020-08-27 10:06] VITALS: TEMP 97
[2020-08-27 10:34] VITALS: BP 140/79; PULSE 80
== END 2020-08-27 10:34 | disposition home or self-care (01) ==
LOC: FASU-ENDO 08:36
PROVIDERS: ATTEND Internal Medicine Gastroenterology
PROC: 0DB78ZX Excision of Stomach, Pylorus, Via Natural or Artificial Opening Endoscopic, Diagnostic (ICD-10-PCS; 2020-08-27)
PROC: 0DB48ZX Excision of Esophagogastric Junction, Via Natural or Artificial Opening Endoscopic, Diagnostic (ICD-10-PCS; 2020-08-27)
PROC: 0DB98ZX Excision of Duodenum, Via Natural or Artificial Opening Endoscopic, Diagnostic (ICD-10-PCS; principal; 2020-08-27 09:38)
DX: K29.50 Unspecified chronic gastritis without bleeding (principal); K21.00 Gastro-esophageal reflux disease with esophagitis, without bleeding
CPT/HCPCS: 82962; 88305-TC; 88342-TC

== ENCOUNTER 2020-09-23 17:16 | Emergency (ER) | payer BC, OTHER ==
[2020-09-23 17:35] VITALS: BP 155/80; PULSE 100; TEMP 98.8; BMI 33.8
== END 2020-09-23 18:32 | disposition home or self-care (01) ==
LOC: FER 17:16
DX: S83.412A Sprain of medial collateral ligament of left knee, initial encounter (principal)
CPT/HCPCS: 73560-TC-LT-FY; 99284-25

== ENCOUNTER 2020-10-07 10:31 | Inpatient (IN) | payer BC, OTHER ==
[2020-10-07] MEDS ORDERED: SODIUM CHLORIDE 1,000 ML IV STA (10:56)
[2020-10-07] MEDS ORDERED: ACETAMINOPHEN 1000 MG/100 ML VIAL (NON FORMULARY) IVPB ONE (10:56)
[2020-10-07] MEDS ORDERED: PANTOPRAZOLE SODIUM 40 MG in SODIUM CHLORIDE 100 ML IVPB ONE (10:56)
[2020-10-07] MEDS ORDERED: ONDANSETRON 4 MG/2 ML VIAL IVPB ONE (10:56)
[2020-10-07] MEDS ORDERED: ONDANSETRON 4 MG/2 ML VIAL ONE (11:07)
[2020-10-07] MEDS ORDERED: ACETAMINOPHEN INJECTION 100 ML IVPB ONE (11:07)
[2020-10-07] MEDS ORDERED: PANTOPRAZOLE SODIUM 40 MG VIAL ONE (11:08)
[2020-10-07 11:57] LABS: ALBUMIN 3.7 g/dl (3.4-5.0); ALK PHOS 62 U/L (45-117); ANION GAP 9 MMOL/L (8-16); BILIRUBIN,TOTAL 0.8 mg/dl (0.2-1); CALCIUM 8.6 mg/dl (8.5-10); CHLORIDE 98 mmol/L (98-107); CO2 29 mmol/L (21-32); CREATININE 0.7 mg/dl (0.55-1.3); GLUCOSE,RANDOM 130 mg/dl (74-106); SGOT/AST 13 U/L (15-37); SGPT/ALT 10 U/L (13-61); SODIUM 136 mmol/L (136-145); TOT PROT 6.6 g/dl (6.4-8.2)
[2020-10-07 11:58] LABS: MEAN PLT VOLUME 7.8 fl (7.5-11.1); WHITE BLOOD COUNT 6.4 K/mm3 (4.0-10.8)
[2020-10-07 12:00] LABS: EOS % 1.4 % (0-4.5); HEMATOCRIT 40.1 % (32.4-45.2); LYMPH % 10.9 % (8-40); MCH 31.8 pg (25.7-33.7); MCHC 32.4 g/dl (32.0-36.0); MEAN CELL VOLUME 98.2 fl (80-96); MONO % 4.1 % (3.8-10.2); NEUT % 82.6 % (42.8-82.8); PLATELET COUNT 188 K/MM3 (134-434); RBC 4.09 M/mm3 (3.60-5.2); RDW 16.8 % (11.6-15.6)
[2020-10-07 13:02] LABS: EPITHELIAL CELLS FEW /hpf
[2020-10-07 13:08] LABS: LIPASE 52 U/L (73-393)
[2020-10-07] MEDS ORDERED: RAPID SEQUENCE INTUBATION KIT NR ONE (13:21)
[2020-10-07] MEDS ORDERED: methylPREDNISolone NA SUCC 125 MG/2 ML VIAL ONE (13:22)
[2020-10-07] MEDS ORDERED: ALBUTEROL SO4 2.5/IPRATROPIUM 0.5 INH SOL 3 ML VIAL.NEB. NEB ONE (13:24)
[2020-10-07] MEDS ORDERED: ETOMIDATE 20 MG/10 ML AMPUL IVPUSH ONE (13:50)
[2020-10-07] MEDS ORDERED: ROCURONIUM BROMIDE 50 MG/5 ML VIAL IV ONE (13:51)
[2020-10-07] MEDS ORDERED: PROPOFOL 1,000,000 MCG/100 ML VIAL ONE (13:53)
[2020-10-07] MEDS: PROPOFOL 1,000,000 MCG/100 ML VIAL IVPB SCH (14:10)
[2020-10-07] MEDS ORDERED: methylPREDNISolone NA SUCC 125 MG/2 ML VIAL IVPUSH ONE (14:29)
[2020-10-07] MEDS ORDERED: EPINEPHrine 1:1,000 1 MG/1 ML - 30ML VIAL (INJECTION) IV ONE ×2 (14:36)
[2020-10-07 15:06] LABS: ARTERIAL BLD GAS O2 SATURATION 99.2 mmHg (95-98); ARTERIAL BLOOD GAS BASE EXCESS -7.6 mmol/L (-2-2); ARTERIAL BLOOD GAS PO2 223.7 mmHg (80-100)
[2020-10-07 15:08] LABS: ALLENS TEST POSITIVE
[2020-10-07 15:09] LABS: VENT MODE A/C; VENT RATE 18
[2020-10-07 15:10] LABS: ARTERIAL BLOOD GAS pH 7.175 (7.350-7.450)
[2020-10-07] MEDS ORDERED: DEXMEDETOMIDINE IN 0.9 % NACL 200 MCG/50 ML EACH IVPB SCH (16:15)
[2020-10-07] MEDS: FENTANYL IVPB 500 MCG/100 ML BAG IVPB SCH (17:46)
[2020-10-07] MEDS: SODIUM CHLORIDE 1,000 ML IV SCH (17:57)
[2020-10-07] MEDS: FAMOTIDINE 20 MG/50 ML IVPB 20 MG/50 ML MG IVPB SCH ×2 (18:18→21:49)
[2020-10-07 18:58] LABS: LACTIC ACID 3.5 mmol/L (0.4-2.0)
[2020-10-07 19:49] LABS: ARTERIAL BLD GAS O2 SATURATION 96.9 mmHg (95-98); ARTERIAL BLOOD GAS BASE EXCESS -0.1 mmol/L (-2-2); ARTERIAL BLOOD GAS PO2 98.5 mmHg (80-100); ARTERIAL BLOOD GAS pH 7.321 (7.350-7.450)
[2020-10-07 19:50] LABS: ALLENS TEST POSITIVE; VENT MODE A/C; VENT RATE 18
[2020-10-07] MEDS: ELECTROLYTE IV SCH (20:00)
[2020-10-07] MEDS: MUPIROCIN 2% TOPICAL OINTMENT FOR DECOLONIZATION NS SCH (21:49)
[2020-10-07] MEDS: CHLORHEXIDINE GLUCONATE 4% CLEANSER FOR DECOLONIZATION TP SCH (21:49)
[2020-10-07] MEDS: HEPARIN NA (PORCINE) 5,000 UNITS/ML 1ML VIAL SQ SCH (21:49)
[2020-10-07] MEDS ORDERED: FAMOTIDINE 20 MG/50 ML IVPB 20 MG/50 ML MG IVPB SCH (22:00)
[2020-10-08] MEDS: PROPOFOL 1,000,000 MCG/100 ML VIAL IVPB SCH ×3 (01:30→09:28)
[2020-10-08] MEDS: FENTANYL IVPB 500 MCG/100 ML BAG IVPB SCH ×2 (01:31→05:00)
[2020-10-08] MEDS: HEPARIN NA (PORCINE) 5,000 UNITS/ML 1ML VIAL SQ SCH ×3 (05:39→21:02)
[2020-10-08 06:06] LABS: ARTERIAL BLD GAS O2 SATURATION 92.6 mmHg (95-98); ARTERIAL BLOOD GAS BASE EXCESS 0.5 mmol/L (-2-2); ARTERIAL BLOOD GAS PO2 65.7 mmHg (80-100); ARTERIAL BLOOD GAS pH 7.385 (7.350-7.450)
[2020-10-08 06:08] LABS: ALLENS TEST POSITIVE; VENT MODE A/C; VENT RATE 20
[2020-10-08 07:22] LABS: BASO % 0.2 % (0-2.0); HEMATOCRIT 39.7 % (32.4-45.2); HEMOGLOBIN 13.3 GM/dL (10.7-15.3); LYMPH % 5.9 % (8-40); MCH 33.2 pg (25.7-33.7); MCHC 33.5 g/dl (32.0-36.0); MEAN CELL VOLUME 99.2 fl (80-96); MEAN PLT VOLUME 8.2 fl (7.5-11.1); NEUT % 89.9 % (42.8-82.8); PLATELET COUNT 154 K/MM3 (134-434); RDW 17.5 % (11.6-15.6)
[2020-10-08 07:26] LABS: INR 1.07 (0.83-1.09); PROTHROMBIN TIME (PATIENT) 13.1 SEC (9.7-13.0)
[2020-10-08 07:29] LABS: ACTIVATED PTT 24.1 SECONDS (25.2-36.5)
[2020-10-08 08:00] LABS: ALBUMIN 3.1 g/dl (3.4-5.0); BLOOD UREA NITROGEN 7.8 mg/dL (7-18); CALCIUM 8.4 mg/dL (8.5-10.1); MAGNESIUM 1.9 mg/dL (1.8-2.4)
[2020-10-08 08:03] LABS: CREATININE 0.6 mg/dL (0.55-1.3)
[2020-10-08 08:04] LABS: PHOSPHOROUS 3.6 mg/dL (2.5-4.9)
[2020-10-08 08:05] LABS: BILIRUBIN,TOTAL 0.5 mg/dL (0.2-1); TOT PROT 5.7 g/dl (6.4-8.2)
[2020-10-08] MEDS: FAMOTIDINE 20 MG/50 ML IVPB 20 MG/50 ML MG IVPB SCH ×2 (09:10→21:02)
[2020-10-08] MEDS: MUPIROCIN 2% TOPICAL OINTMENT FOR DECOLONIZATION NS SCH ×2 (09:43→21:01)
[2020-10-08] MEDS: SODIUM CHLORIDE 1,000 ML IV SCH ×2 (09:43→21:01)
[2020-10-08] MEDS ORDERED: DEXAMETHASONE SOD PHOSPHATE 10 MG/1 ML VIAL ONE (10:34)
[2020-10-08] MEDS ORDERED: DEXAMETHASONE SOD PHOSPHATE 10 MG/1 ML VIAL IVPUSH ONE (10:45)
[2020-10-08] MEDS ORDERED: ACETAMINOPHEN WITH CODEINE 300MG/30MG TABLET PO PRN ×2 (12:13→12:16)
[2020-10-08] MEDS ORDERED: ONDANSETRON 4 MG/2 ML VIAL IVPB ONE (13:29)
[2020-10-08] MEDS ORDERED: ACETAMINOPHEN 325 MG TABLET (FP) PO PRN (13:29)
[2020-10-08] MEDS ORDERED: CEFTRIAXONE 1 GM in DEXTROSE 5%-WATER - 50 ML IVPB ONE (15:14)
[2020-10-08] MEDS ORDERED: DEXTROSE 5%-WATER - 50 ML IVPB ONE (15:34)
[2020-10-08] MEDS ORDERED: cefTRIAXone SODIUM 1 GM VIAL ONE (15:34)
[2020-10-08] MEDS: oxyCODONE HCL 5 MG TABLET PO PRN ×2 (15:35→21:03)
[2020-10-08] MEDS ORDERED: ACETYLCYSTEINE 20% 200MG/ML 4 ML VIAL *FOR ORAL / INH USE ONLY NEB SCH (16:00)
[2020-10-08] MEDS ORDERED: ACETYLCYSTEINE 20% 200MG/ML 30 ML VIAL *FOR ORAL / INH USE ONLY NEB SCH (16:00)
[2020-10-08] MEDS ORDERED: oxyCODONE HCL 5 MG TABLET PO PRN ×3 (18:00)
[2020-10-08] MEDS ORDERED: SODIUM CHLORIDE NASAL SPRAY 44 ML BOTTLE NS PRN (18:05)
[2020-10-08] MEDS ORDERED: ACETAMINOPHEN WITH CODEINE 300MG/30MG TABLET PO ONE (18:51)
[2020-10-08] MEDS: CHLORHEXIDINE GLUCONATE 4% CLEANSER FOR DECOLONIZATION TP SCH (21:02)
[2020-10-08] MEDS: ELECTROLYTE IV SCH (22:15)
[2020-10-08] MEDS: DEXMEDETOMIDINE IN 0.9 % NACL 400 MCG/100 ML VIAL IVPB SCH (22:16)
[2020-10-08] MEDS ORDERED: oxyCODONE HCL 40 MG SUSTAINED ACTING TABLET PO ONE (23:17)
[2020-10-08] MEDS ORDERED: ALBUTEROL SO4 2.5/IPRATROPIUM 0.5 INH SOL 3 ML VIAL.NEB. NEB PRN (23:37)
[2020-10-09] MEDS: oxyCODONE HCL 5 MG TABLET PO PRN ×3 (02:48→22:14)
[2020-10-09] MEDS: HEPARIN NA (PORCINE) 5,000 UNITS/ML 1ML VIAL SQ SCH ×3 (05:38→21:58)
[2020-10-09 05:47] LABS: ARTERIAL BLD GAS O2 SATURATION 91.2 mmHg (95-98); ARTERIAL BLOOD GAS BASE EXCESS -1.2 mmol/L (-2-2); ARTERIAL BLOOD GAS PO2 59.4 mmHg (80-100); ARTERIAL BLOOD GAS pH 7.411 (7.350-7.450)
[2020-10-09 05:48] LABS: ALLENS TEST POSITIVE
[2020-10-09] MEDS ORDERED: morphine SULFATE 4 MG/ML VIAL IVPUSH ONE (06:58)
[2020-10-09 07:26] LABS: BASO % 0.1 % (0-2.0); HEMOGLOBIN 11.5 GM/dL (10.7-15.3); LYMPH % 11.2 % (8-40); MCHC 33.9 g/dl (32.0-36.0); MEAN CELL VOLUME 97.2 fl (80-96); MEAN PLT VOLUME 8.2 fl (7.5-11.1); MONO % 3.5 % (3.8-10.2); NEUT % 85.2 % (42.8-82.8); PLATELET COUNT 160 K/MM3 (134-434); RDW 17.4 % (11.6-15.6); WHITE BLOOD COUNT 9.9 K/mm3 (4.0-10.0)
[2020-10-09 07:41] LABS: CALCIUM 7.9 mg/dL (8.5-10.1)
[2020-10-09 07:42] LABS: MAGNESIUM 1.9 mg/dL (1.8-2.4)
[2020-10-09 07:45] LABS: PHOSPHOROUS 2.6 mg/dL (2.5-4.9)
[2020-10-09 07:46] LABS: CREATININE 0.6 mg/dL (0.55-1.3)
[2020-10-09 07:47] LABS: BILIRUBIN,TOTAL 0.5 mg/dL (0.2-1); TOT PROT 5.2 g/dl (6.4-8.2)
[2020-10-09] MEDS ORDERED: cefTRIAXone SODIUM 1 GM VIAL ONE (08:20)
[2020-10-09] MEDS ORDERED: DEXTROSE 5%-WATER - 50 ML IVPB ONE (08:21)
[2020-10-09] MEDS: MUPIROCIN 2% TOPICAL OINTMENT FOR DECOLONIZATION NS SCH (09:05)
[2020-10-09] MEDS: FAMOTIDINE 20 MG/50 ML IVPB 20 MG/50 ML MG IVPB SCH ×2 (09:06→21:57)
[2020-10-09] MEDS ORDERED: CEFTRIAXONE 1 GM in DEXTROSE 5%-WATER - 50 ML IVPB SCH (10:00)
[2020-10-09] MEDS: DEXMEDETOMIDINE IN 0.9 % NACL 400 MCG/100 ML VIAL IVPB SCH (15:01)
[2020-10-09 15:40] VITALS: BMI 37.8
[2020-10-09] MEDS ORDERED: SODIUM CHLORIDE NASAL SPRAY 44 ML BOTTLE NS PRN (15:49)
[2020-10-09] MEDS ORDERED: ACETAMINOPHEN 325 MG TABLET (FP) PO PRN (15:49)
[2020-10-09] MEDS ORDERED: oxyCODONE HCL 5 MG TABLET PO ONE (18:18)
[2020-10-09] MEDS: ALBUTEROL SO4 2.5/IPRATROPIUM 0.5 INH SOL 3 ML VIAL.NEB. NEB PRN (18:20)
[2020-10-10] MEDS ORDERED: MELATONIN 5 MG TABLETS PO ONE (00:30)
[2020-10-10] MEDS ORDERED: oxyCODONE HCL 5 MG TABLET PO ONE (00:30)
[2020-10-10] MEDS: ALBUTEROL SO4 2.5/IPRATROPIUM 0.5 INH SOL 3 ML VIAL.NEB. NEB PRN (00:32)
[2020-10-10] MEDS: oxyCODONE HCL 5 MG TABLET PO PRN ×2 (05:00→11:13)
[2020-10-10] MEDS ORDERED: hydrALAZINE HCL 10 MG TABLET PO ONE (05:32)
[2020-10-10] MEDS: HEPARIN NA (PORCINE) 5,000 UNITS/ML 1ML VIAL SQ SCH ×2 (06:01→13:40)
[2020-10-10 08:48] LABS: BASO % 0.4 % (0-2.0); EOS % 0.3 % (0-4.5); HEMATOCRIT 34.8 % (32.4-45.2); HEMOGLOBIN 11.6 GM/dL (10.7-15.3); LYMPH % 13.4 % (8-40); MCH 32.7 pg (25.7-33.7); MCHC 33.5 g/dl (32.0-36.0); MEAN CELL VOLUME 97.7 fl (80-96); MEAN PLT VOLUME 8.6 fl (7.5-11.1); MONO % 4.3 % (3.8-10.2); NEUT % 81.6 % (42.8-82.8); PLATELET COUNT 139 K/MM3 (134-434); RBC 3.56 M/mm3 (3.60-5.2); RDW 17.2 % (11.6-15.6); WHITE BLOOD COUNT 6.8 K/mm3 (4.0-10.0)
[2020-10-10 09:00] LABS: CALCIUM 7.9 mg/dL (8.5-10.1)
[2020-10-10 09:01] LABS: BLOOD UREA NITROGEN 13.6 mg/dL (7-18)
[2020-10-10 09:04] LABS: CREATININE 0.5 mg/dL (0.55-1.3)
[2020-10-10] MEDS ORDERED: cefTRIAXone SODIUM 1 GM VIAL ONE (09:07)
[2020-10-10] MEDS ORDERED: DEXTROSE 5%-WATER - 50 ML IVPB ONE (09:07)
[2020-10-10] MEDS: FAMOTIDINE 20 MG/50 ML IVPB 20 MG/50 ML MG IVPB SCH (09:18)
[2020-10-10 09:32] VITALS: BP 152/71; PULSE 60; TEMP 98.2
[2020-10-10] MEDS ORDERED: CEFTRIAXONE 1 GM in DEXTROSE 5%-WATER - 50 ML IVPB SCH (10:00)
== END 2020-10-10 15:37 | disposition home or self-care (01) | DRG 915 ==
LOC: FER 10:31 → JICU 16:13 → J5S 10-09 15:30
PROVIDERS: ATTEND Internal Medicine
PROC: 5A1935Z Respiratory Ventilation, Less than 24 Consecutive Hours (ICD-10-PCS; principal; 2020-10-07)
PROC: 0BH17EZ Insertion of Endotracheal Airway into Trachea, Via Natural or Artificial Opening (ICD-10-PCS; 2020-10-07)
DX: T88.6XXA Anaphylactic reaction due to adverse effect of correct drug or medicament properly administered, initial encounter (principal); J96.01 Acute respiratory failure with hypoxia; E87.2 Acidosis; N39.0 Urinary tract infection, site not specified; R10.9 Unspecified abdominal pain; R10.13 Epigastric pain; E66.01 Morbid (severe) obesity due to excess calories; Z68.38 Body mass index [BMI] 38.0-38.9, adult; I10 Essential (primary) hypertension; E78.5 Hyperlipidemia, unspecified; T50.8X5A Adverse effect of diagnostic agents, initial encounter; E11.9 Type 2 diabetes mellitus without complications; M48.00 Spinal stenosis, site unspecified; F17.210 Nicotine dependence, cigarettes, uncomplicated
CPT/HCPCS: 36415; 36600; 71045-TC-FY; 76705-TC; 80048; 80053; 81003; 81015; 82550; 82803; 82962; 83605; 83690; 83735; 84100; 84484; 85025; 85610; 85730; 87086; 87186; 93005; 93010; 94002; 94640; 97116-GP; 97161-GP; 99291; C9803; J0131; J1100; J1644; U0003; U0005

== ENCOUNTER 2020-11-26 09:44 | Day surgery (SDC) | payer BC, OTHER ==
[2020-10-11 09:04] VITALS: BMI 32.9
[2020-11-26 12:33] VITALS: TEMP 97.8
[2020-11-26 12:35] VITALS: BP 131/72; PULSE 72
== END 2020-11-26 13:20 | disposition home or self-care (01) ==
LOC: FASU-ENDO 09:44
PROVIDERS: ATTEND Internal Medicine Gastroenterology
PROC: 0DJD8ZZ Inspection of Lower Intestinal Tract, Via Natural or Artificial Opening Endoscopic (ICD-10-PCS; principal; 2020-11-26 11:33)
DX: K57.30 Diverticulosis of large intestine without perforation or abscess without bleeding (principal); K59.00 Constipation, unspecified; R10.9 Unspecified abdominal pain

== ENCOUNTER 2021-03-25 12:09 | Emergency (ER) | payer BC, OTHER ==
[2021-03-25 12:27] VITALS: BP 163/93; PULSE 110; TEMP 99.5; BMI 32.9
[2021-03-25] MEDS ORDERED: FAMOTIDINE 20 MG/50 ML IVPB 20 MG in PREMIX 50 IVPB ONE (14:07)
[2021-03-25] MEDS ORDERED: MAG HYDROX/AL HYDROX/SIMETH -MYLANTA- ORAL SUSPENSION PO ONE (14:07)
[2021-03-25] MEDS ORDERED: MAG HYDROX/AL HYDROX/SIMETH 30 ML UNIT-DOSE CUP ONE (14:19)
[2021-03-25] MEDS ORDERED: FAMOTIDINE 20 MG/50 ML IVPB 20 MG/50 ML MG IVPB ONE (14:19)
[2021-03-25 14:49] LABS: HEMATOCRIT 41.2 % (32.4-45.2); MCHC 31.5 g/dl (32.0-36.0); MEAN CELL VOLUME 98.5 fl (80-96); MEAN PLT VOLUME 7.1 fl (7.5-11.1); PLATELET COUNT 230 10^3/uL (134-434); RBC 4.19 M/mm3 (3.60-5.2); RDW 20.6 % (11.6-15.6); WHITE BLOOD COUNT 9.5 K/mm3 (4.0-10.8)
[2021-03-25 14:51] LABS: ALK PHOS 74 U/L (45-117); ANION GAP 12 MMOL/L (8-16); BILIRUBIN,TOTAL 0.8 mg/dl (0.2-1); CALCIUM 9.1 mg/dl (8.5-10); CHLORIDE 93 mmol/L (98-107); CO2 28 mmol/L (21-32); CREATININE 0.7 mg/dl (0.55-1.3); GLUCOSE,RANDOM 116 mg/dl (74-106); SGOT/AST 18 U/L (15-37); SGPT/ALT 19 U/L (13-61); SODIUM 133 mmol/L (136-145); TOT PROT 7.1 g/dl (6.4-8.2)
[2021-03-25 14:54] LABS: ADD RBC MORPHOLOGY YES
[2021-03-25] MEDS ORDERED: ONDANSETRON 4 MG/2 ML VIAL IVPUSH ONE (14:55)
[2021-03-25] MEDS ORDERED: ONDANSETRON 4 MG/2 ML VIAL ONE (14:59)
[2021-03-25 16:07] LABS: LIPASE 55 U/L (73-393)
[2021-03-25 17:53] LABS: ANISOCYTOSIS 3+; PLATELET ESTIMATE ADEQUATE
== END 2021-03-25 16:33 | disposition home or self-care (01) ==
LOC: FER 12:09
PROC: 3E033GC Introduction of Other Therapeutic Substance into Peripheral Vein, Percutaneous Approach (ICD-10-PCS; principal; 2021-03-25)
PROC: 3E033GC Introduction of Other Therapeutic Substance into Peripheral Vein, Percutaneous Approach (ICD-10-PCS; 2021-03-25)
DX: K59.00 Constipation, unspecified (principal)
CPT/HCPCS: 36415; 80053; 82550; 83690; 84484; 85025; 93005; 99284-25

== ENCOUNTER 2021-07-11 04:23 | Day surgery (SDC) | payer BC, OTHER ==
[2021-07-09 15:33] VITALS: BMI 32.3
[2021-07-11 09:37] VITALS: TEMP 97
[2021-07-11 11:25] VITALS: BP 121/64; PULSE 70
== END 2021-07-11 11:10 | disposition home or self-care (01) ==
LOC: JASU-ENDO 04:23
PROVIDERS: ATTEND Internal Medicine Gastroenterology
PROC: 0DJD8ZZ Inspection of Lower Intestinal Tract, Via Natural or Artificial Opening Endoscopic (ICD-10-PCS; principal; 2021-07-11 08:45)
DX: Z12.11 Encounter for screening for malignant neoplasm of colon (principal); K64.8 Other hemorrhoids; R10.84 Generalized abdominal pain; I10 Essential (primary) hypertension; E11.9 Type 2 diabetes mellitus without complications
CPT/HCPCS: 82962

== ENCOUNTER 2021-09-03 13:54 | Emergency (ER) | payer BC, OTHER ==
[2021-09-03] MEDS ORDERED: DIPHTH,PERTUSS(ACELL),TET 0.5 ML DISP.SYRIN IM ONE ×2 (14:31→14:47)
[2021-09-03 14:39] VITALS: BP 149/86; PULSE 88; TEMP 98; BMI 36.0
== END 2021-09-03 15:02 | disposition home or self-care (01) ==
LOC: FER 13:54
PROC: 0HQKXZZ Repair Right Lower Leg Skin, External Approach (ICD-10-PCS; principal; 2021-09-03)
PROC: 3E0234Z Introduction of Serum, Toxoid and Vaccine into Muscle, Percutaneous Approach (ICD-10-PCS; 2021-09-03)
DX: S81.811A Laceration without foreign body, right lower leg, initial encounter (principal); W22.8XXA Striking against or struck by other objects, initial encounter
CPT/HCPCS: 90715; 99282-25

== ENCOUNTER 2021-11-15 08:36 | Emergency (ER) | payer BC, OTHER ==
[2021-11-15 08:52] VITALS: TEMP 98.5
[2021-11-15 09:17] VITALS: BMI 36.6
[2021-11-15] MEDS ORDERED: ONDANSETRON *ODT* 4 MG TABLET SL ONE (09:20)
[2021-11-15] MEDS ORDERED: cloNIDine HCL 0.1 MG TABLET PO ONE (09:20)
[2021-11-15] MEDS ORDERED: cloNIDine HCL 0.1 MG TABLET ONE (09:22)
[2021-11-15] MEDS ORDERED: ONDANSETRON *ODT* 4 MG TABLET ONE (09:22)
[2021-11-15 09:27] VITALS: PULSE 108
[2021-11-15 09:45] VITALS: BP 142/88
== END 2021-11-15 09:46 | disposition home or self-care (01) ==
LOC: FER 08:36
DX: M54.50 Low back pain, unspecified (principal); G89.29 Other chronic pain
CPT/HCPCS: 99283-25; J0735; Q0162

== ENCOUNTER 2021-11-25 20:40 | Inpatient (IN) | payer BC, OTHER ==
[2021-11-25] MEDS ORDERED: ALBUTEROL SO4 2.5/IPRATROPIUM 0.5 INH SOL 3 ML VIAL.NEB. NEB ONE ×2 (20:43→20:45)
[2021-11-25] MEDS ORDERED: methylPREDNISolone NA SUCC 125 MG/2 ML VIAL IVPUSH ONE (20:43)
[2021-11-25] MEDS ORDERED: methylPREDNISolone NA SUCC 125 MG/2 ML VIAL ONE (20:45)
[2021-11-25] MEDS ORDERED: MAGNESIUM SULF 50% (8.12 MEQ/2 ML-1 GM VIAL) IVPB ONE (20:54)
[2021-11-25] MEDS ORDERED: MAGNESIUM 1GM/D5W - 2 GM/200 ML IVPB IVPB ONE (21:09)
[2021-11-25 21:11] LABS: HEMATOCRIT 44.1 % (32.4-45.2); HEMOGLOBIN 15.2 G/dL (10.7-15.3); MCH 33.5 pg (25.7-33.7); MCHC 34.4 g/dl (32.0-36.0); MEAN CELL VOLUME 97.4 fl (80-96); MEAN PLT VOLUME 8.7 fl (7.5-11.1); RBC 4.53 10^6/uL (3.60-5.2); RDW 15.8 % (11.6-15.6); WHITE BLOOD COUNT 14.7 10^3/uL (4.0-10.8)
[2021-11-25 21:21] LABS: INR 0.99 (0.83-1.09); PROTHROMBIN TIME (PATIENT) 11.4 SEC (9.7-13.0)
[2021-11-25 21:29] LABS: ALBUMIN 4.3 g/dl (3.4-5.0); BILIRUBIN,TOTAL 0.6 mg/dl (0.2-1); CALCIUM 9.2 mg/dl (8.5-10); CREATININE 0.8 mg/dl (0.55-1.3); TOT PROT 7.4 g/dl (6.4-8.2)
[2021-11-25 21:35] LABS: PLATELET ESTIMATE ADEQUATE
[2021-11-25 22:28] LABS: VENOUS BASE EXCESS -0.1 mmol/L (-2-2); VENOUS O2 SATURATION 63.1 % (70-80); VENOUS PCO2 68.7 mmHg (38-52); VENOUS PH 7.248 (7.310-7.410)
[2021-11-25] MEDS ORDERED: AZITHROMYCIN IVPB 500 MG in DEXTROSE 5%-WATER - 250 ML IVPB ONE (23:17)
[2021-11-25] MEDS ORDERED: AZITHROMYCIN 500 MG VIAL IVPB ONE (23:34)
[2021-11-25] MEDS ORDERED: oxyCODONE HCL 80 MG SUSTAINED ACTING TABLET PO ONE (23:56)
[2021-11-26] MEDS ORDERED: ALBUTEROL SO4 0.042% IH SOL 1.25 MG/3 ML VIAL.NEB NEB ONE (00:32)
[2021-11-26] MEDS ORDERED: ALBUTEROL SO4 0.083% IH SOL 2.5 MG/3 ML VIAL.NEB. NEB ONE (00:33)
[2021-11-26 01:55] VITALS: BMI 32.7
[2021-11-26] MEDS ORDERED: methylPREDNISolone NA SUCC 40 MG/1 ML VIAL IVPUSH SCH (02:00)
[2021-11-26] MEDS ORDERED: ALBUTEROL SO4 2.5/IPRATROPIUM 0.5 INH SOL 3 ML VIAL.NEB. NEB PRN (03:00)
[2021-11-26 08:56] LABS: ALBUMIN 3.2 g/dl (3.4-5.0); BILIRUBIN,TOTAL 0.7 mg/dl (0.2-1); CALCIUM 8.3 mg/dl (8.5-10); CREATININE 0.7 mg/dl (0.55-1.3); MAGNESIUM 2.1 mg/dL (1.8-2.4); TOT PROT 5.9 g/dl (6.4-8.2)
[2021-11-26] MEDS ORDERED: traMADol HCL 50 MG TABLET PO PRN (09:40)
[2021-11-26] MEDS: methylPREDNISolone NA SUCC 40 MG/1 ML VIAL IVPUSH SCH ×2 (09:48→15:58)
[2021-11-26] MEDS: ALBUTEROL SO4 2.5/IPRATROPIUM 0.5 INH SOL 3 ML VIAL.NEB. NEB SCH ×4 (09:48→21:34)
[2021-11-26] MEDS: AZITHROMYCIN IVPB 500 MG in SODIUM CHLORIDE 250 ML IVPB SCH (09:58)
[2021-11-26 11:57] LABS: HEMATOCRIT 39.7 % (32.4-45.2); HEMOGLOBIN 13.3 GM/dL (10.7-15.3); MCH 31.6 pg (25.7-33.7); MCHC 33.4 g/dl (32.0-36.0); MEAN CELL VOLUME 94.7 fl (80-96); MEAN PLT VOLUME 8.7 fl (7.5-11.1); PLATELET COUNT 185 10^3/uL (134-434); RBC 4.19 M/mm3 (3.60-5.2); RDW 15.2 % (11.6-15.6); WHITE BLOOD COUNT 6.7 K/mm3 (4.0-10.0)
[2021-11-26 13:10] LABS: ANISOCYTOSIS 0; HELMET CELLS 0; HOWELL-JOLLY BODIES 0; MACROCYTOSIS 0; OVALOCYTE 0; ROULEAU 0; SICKELED CELLS 0; TARGET CELLS 0; TEAR DROP CELLS 0; TOXIC GRANULATION 0
[2021-11-26] MEDS: ACETAMINOPHEN 1000 MG/100 ML BAG IVPB PRN ×2 (13:35→19:44)
[2021-11-26] MEDS: oxyCODONE HCL 10 MG SUSTAINED ACTING TABLET PO SCH ×2 (14:51→21:32)
[2021-11-26] MEDS: GABAPENTIN 300 MG CAPSULE PO PRN (17:38)
[2021-11-26] MEDS ORDERED: ONDANSETRON 4 MG/2 ML VIAL IVPUSH ONE (22:35)
[2021-11-26] MEDS ORDERED: cloNIDine HCL 0.1 MG TABLET PO ONE (22:38)
[2021-11-27] MEDS: methylPREDNISolone NA SUCC 40 MG/1 ML VIAL IVPUSH SCH ×5 (00:24→18:19)
[2021-11-27] MEDS: GABAPENTIN 300 MG CAPSULE PO PRN (03:06)
[2021-11-27] MEDS: ALBUTEROL SO4 2.5/IPRATROPIUM 0.5 INH SOL 3 ML VIAL.NEB. NEB SCH ×4 (03:07→13:28)
[2021-11-27] MEDS: ACETAMINOPHEN 1000 MG/100 ML BAG IVPB PRN (04:15)
[2021-11-27 05:53] LABS: URINE BARBITURATES NEGATIVE (NEGATIVE)
[2021-11-27 05:54] LABS: COCAINE, UR NEGATIVE (NEGATIVE)
[2021-11-27 05:58] LABS: METHADONE, UR NEGATIVE (NEGATIVE); OPIATES, URI POSITIVE (NEGATIVE); PHENCYCLIDINE,URINE NEGATIVE (NEGATIVE); URINE AMPHETAMINES NEGATIVE (NEGATIVE); URINE BENZODIAZEPINES NEGATIVE (NEGATIVE)
[2021-11-27 08:16] LABS: ALBUMIN 3.7 g/dl (3.4-5.0); BILIRUBIN,TOTAL 0.7 mg/dl (0.2-1); CALCIUM 8.7 mg/dl (8.5-10); CREATININE 0.6 mg/dl (0.55-1.3); TOT PROT 6.5 g/dl (6.4-8.2)
[2021-11-27] MEDS: ALPRAZolam 1 MG TABLET PO PRN ×2 (08:42→20:59)
[2021-11-27] MEDS: oxyCODONE HCL 10 MG SUSTAINED ACTING TABLET PO SCH ×2 (09:39→21:00)
[2021-11-27 10:32] LABS: HEMATOCRIT 39.5 % (32.4-45.2); MCHC 32.9 g/dl (32.0-36.0); MEAN CELL VOLUME 94.3 fl (80-96); PLATELET COUNT 195 10^3/uL (134-434); RBC 4.19 M/mm3 (3.60-5.2); RDW 15.1 % (11.6-15.6); WHITE BLOOD COUNT 11.1 K/mm3 (4.0-10.0)
[2021-11-27] MEDS: AZITHROMYCIN IVPB 500 MG in SODIUM CHLORIDE 250 ML IVPB SCH (10:41)
[2021-11-27 11:07] LABS: ANISOCYTOSIS 1+; MACROCYTOSIS 0; PLATELET ESTIMATE DECREASED
[2021-11-27] MEDS ORDERED: ALBUTEROL SO4 0.083% IH SOL 2.5 MG/3 ML VIAL.NEB. NEB PRN (17:51)
[2021-11-27] MEDS ORDERED: methylPREDNISolone NA SUCC 40 MG/1 ML VIAL IVPUSH ONE (17:59)
[2021-11-28] MEDS: methylPREDNISolone NA SUCC 40 MG/1 ML VIAL IVPUSH SCH (06:01)
[2021-11-28 08:30] LABS: ALBUMIN 3.6 g/dl (3.4-5.0); BILIRUBIN,TOTAL 0.8 mg/dl (0.2-1); CALCIUM 8.7 mg/dl (8.5-10); CREATININE 0.6 mg/dl (0.55-1.3); TOT PROT 6.2 g/dl (6.4-8.2)
[2021-11-28] MEDS: oxyCODONE HCL 10 MG SUSTAINED ACTING TABLET PO SCH (09:04)
[2021-11-28 09:05] LABS: VENOUS BASE EXCESS 1.2 mmol/L (-2-2); VENOUS PCO2 41.7 mmHg (38-52); VENOUS PH 7.412 (7.310-7.410)
[2021-11-28] MEDS: AZITHROMYCIN IVPB 500 MG in SODIUM CHLORIDE 250 ML IVPB SCH (09:06)
[2021-11-28 09:33] VITALS: BP 151/96; PULSE 83; TEMP 98
[2021-11-28] MEDS ORDERED: ONDANSETRON 4 MG/2 ML VIAL IVPUSH ONE (09:33)
[2021-11-28] MEDS ORDERED: FLUTICASONE/UMECLIDIN/VILANTER(200-62.5-25 TRELEGY ELLIPTA) INAHLER IH SCH (10:00)
== END 2021-11-28 11:00 | disposition home or self-care (01) | DRG 190 ==
LOC: FER 20:40 → FM/S 23:29 → UNDOADMIN 11-26 00:51 → FM/S 11-26 00:51
PROVIDERS: ADMIT Internal Medicine
DX: J44.1 Chronic obstructive pulmonary disease with (acute) exacerbation (principal); J96.01 Acute respiratory failure with hypoxia; J96.02 Acute respiratory failure with hypercapnia; E87.1 Hypo-osmolality and hyponatremia; F11.23 Opioid dependence with withdrawal; E11.9 Type 2 diabetes mellitus without complications; I10 Essential (primary) hypertension; E78.5 Hyperlipidemia, unspecified; Z96.641 Presence of right artificial hip joint; F41.8 Other specified anxiety disorders; E11.40 Type 2 diabetes mellitus with diabetic neuropathy, unspecified; F17.210 Nicotine dependence, cigarettes, uncomplicated
CPT/HCPCS: 0241U-QW; 36415; 71045-TC-FY; 71250-TC; 80053; 80307; 82436; 82803; 83605; 83735; 83880; 83930; 83935; 84133; 84300; 84484; 85025; 85027; 85610; 87040; 93005; 94640; 99291; J0735

== ENCOUNTER 2024-09-10 13:40 | Emergency (ER) | payer BC, OTHER ==
[2024-09-10 13:50] VITALS: BP 142/73; PULSE 86; RESP 16; TEMP 97.7; BMI 33.2
[2024-09-10] MEDS ORDERED: PREGABALIN 50 MG CAPSULE ONE (13:52)
[2024-09-10] MEDS: PREGABALIN 100 MG CAPSULE PO ONE (13:54)
== END 2024-09-10 14:05 | disposition home or self-care (01) ==
LOC: FER 13:40
DX: M54.9 Dorsalgia, unspecified (principal); G89.29 Other chronic pain
CPT/HCPCS: 99283-25

== ENCOUNTER 2024-10-11 13:34 | Emergency (ER) | payer BC, OTHER ==
[2024-10-11 13:40] VITALS: BP 157/72; PULSE 71; RESP 20; TEMP 98.4; BMI 33.8
== END 2024-10-11 14:15 | disposition home or self-care (01) ==
LOC: FER 13:34
DX: Z76.0 Encounter for issue of repeat prescription (principal)
CPT/HCPCS: 99281-25